=== PATIENT | male | born 1975 | race Caucasian/White ===

== ENCOUNTER 2017-11-04 09:58 | Emergency (ER) | payer OTHER ==
[~2017-11-04] VITALS: Ht 182.9 cm; Wt 108.9 kg
[2017-11-04 10:08] VITALS: BP 149/98
[2017-11-04] MEDS ORDERED: HUMALOG100 UNIT/2 SQ (10:13)
[2017-11-04] MEDS ORDERED: MOBIC7.5 MG PO (10:13)
[2017-11-04] MEDS ORDERED: FLEXERIL PO (11:16)
[2017-11-04] MEDS ORDERED: NORCO 5-325 TA1 EACH PO (11:16)
== END 2017-11-04 11:28 | disposition home or self-care (01) ==
LOC: ER 09:58
DX: M25.561 Pain in right knee (principal); M54.5 Low back pain; W10.8XXA Fall (on) (from) other stairs and steps, initial encounter; Y93.89 Activity, other specified; Y92.89 Other specified places as the place of occurrence of the external cause; Y99.8 Other external cause status